=== PATIENT | female | born 1955 | race Caucasian/White ===

== ENCOUNTER 2017-06-28 19:00 | Emergency (ER) | payer OTHER ==
[~2017-06-28] VITALS: Ht 165.1 cm; Wt 61.0 kg
[2017-06-28 19:19] VITALS: BP 121/71; PULSE 74; RESP 18; TEMP 98.4; O2SAT 98
[2017-06-28] MEDS ORDERED: SODIUM CHLOR 0.9% 1000 ML INJ 1,000 ML IV ONE (19:33)
--- NOTE | 2017-06-28 19:37 | PD ---
HPI Chief Complaint: Headache Time Seen by Provider: 19:27 Travel History International Travel<30 days: No Contact w/Intl Traveler<30days: No Traveled to known affect area: No History of Present Illness HPI The patient is a 61-year-old female with no known major medical problems who complains of a gradual onset right-sided headache for the last 2 days. She also has noted left facial, left arm and some minimal left leg numbness. She denies any weakness. She denies any fever. She does have some nausea without vomiting. She has never had a headache like this before. She claims an 8/10 in intensity. The character of the pain is an aching pain. She denies any blurred vision, scotomata or other visual problems. [facility] Social History Tobacco Use: No Allergies-Medications (Allergen,Severity, Reaction): Coded Allergies: No Known Allergies (Unverified , 06/28/17) Reported Meds & Prescriptions Reported Meds & Active Scripts Active Fioricet (Ocpyqkugce-Oxrjzxidkchln-Imuxzgwy) 50-300-40 Mg Cap 1-2 Cap PO Q6H PRN Review of Systems Except as stated in HPI: all other systems reviewed are Neg Physical Exam Narrative GENERAL: The patient is alert, oriented 3 in moderate apparent distress with her right sided headache. Her vital signs are normal. SKIN: Focused skin assessment warm/dry. HEAD: Atraumatic. Normocephalic. EYES: Pupils equal and round. No scleral icterus. No injection or drainage. ENT: No nasal bleeding or discharge. Mucous membranes pink and moist. NECK: Trachea midline. No JVD. There is no meningismus and the patient flex his neck fully without any hesitation. CARDIOVASCULAR: Regular rate and rhythm. No murmur appreciated. RESPIRATORY: No accessory muscle use. Clear to auscultation. Breath sounds equal bilaterally. GASTROINTESTINAL: Abdomen soft, non-tender, nondistended. Hepatic and splenic margins not palpable. MUSCULOSKELETAL: No obvious deformities. No clubbing. No cyanosis. No edema. NEUROLOGICAL: Awake and alert. No obvious cranial nerve deficits. Motor grossly within normal limits. Normal speech. PSYCHIATRIC: Appropriate mood and affect; insight and judgment normal. Data Data Last Documented VS Vital Signs Date Time Temp Pulse Resp B/P (MAP) Pulse Ox O2 Delivery O2 Flow Rate FiO2 06/28/17 20:51 63 16 120/67 (84) 99 Room Air 4/14/18 19:19 98.4 Orders Orders Complete Blood Count With Diff (06/28/17 19:33) Comprehensive Metabolic Panel (06/28/17 19:33) Westergren Sedimentation Rate (06/28/17 19:33) Ct Brain W/O Iv Contrast(Rout) (06/28/17 19:33) Ecg Monitoring (06/28/17 19:33) Iv Access Insert/Monitor (06/28/17 19:33) Oximetry (06/28/17 19:33) Sodium Chloride 0.9% Flush (Ns Flush) (06/28/17 19:45) Prochlorperazine Inj (Compazine Inj) (06/28/17 19:45) Sodium Chlor 0.9% 1000 Ml Inj (Ns 1000 M (06/28/17 19:33) Morphine Inj (Morphine Inj) (06/28/17 20:45) Diphenhydramine Inj (Benadryl Inj) (06/28/17 20:45) Labs Laboratory Tests Test 06/28/17 20:01 White Blood Count 5.1 TH/MM3 Red Blood Count 4.74 MIL/MM3 Hemoglobin 13.6 GM/DL Hematocrit 41.2 % Mean Corpuscular Volume 86.9 FL Mean Corpuscular Hemoglobin 28.7 PG Mean Corpuscular Hemoglobin Concent 33.0 % Red Cell Distribution Width 12.7 % Platelet Count 220 TH/MM3 Mean Platelet Volume 7.5 FL Neutrophils (%) (Auto) 41.7 % Lymphocytes (%) (Auto) 50.7 % Monocytes (%) (Auto) 5.1 % Eosinophils (%) (Auto) 1.6 % Basophils (%) (Auto) 0.9 % Neutrophils # (Auto) 2.1 TH/MM3 Lymphocytes # (Auto) 2.6 TH/MM3 Monocytes # (Auto) 0.3 TH/MM3 Eosinophils # (Auto) 0.1 TH/MM3 Basophils # (Auto) 0.0 TH/MM3 CBC Comment DIFF FINAL Differential Comment Erythrocyte Sedimentation Rate 1 mm/hr Blood Urea Nitrogen 14 MG/DL Creatinine 0.70 MG/DL Random Glucose 127 MG/DL Total Protein 7.0 GM/DL Albumin 3.5 GM/DL Calcium Level 8.4 MG/DL Alkaline Phosphatase 76 U/L Aspartate Amino Transf (AST/SGOT) 17 U/L Alanine Aminotransferase (ALT/SGPT) 20 U/L Total Bilirubin 0.4 MG/DL Sodium Level 141 MEQ/L Potassium Level 3.1 MEQ/L Chloride Level 106 MEQ/L Carbon Dioxide Level 29.0 MEQ/L Anion Gap 6 MEQ/L Estimat Glomerular Filtration Rate 85 ML/MIN MDM Medical Decision Making Medical Screen Exam Complete: Yes Emergency Medical Condition: Yes Medical Record Reviewed: Yes Interpretation(s) Westergren's sedimentation rate is normal at 1. The complete metabolic profile shows a GFR of 85, calcium 8.4, potassium 3.1 but is otherwise normal. The CBC is normal. The CT brain is normal. Differential Diagnosis Migraine headache, tension headache, temporal arteritis-unlikely, subarachnoid hemorrhage-highly unlikely Narrative Course It is now 9:10 PM and the patient's headache is less than a 5/10. She feels much better. Diagnosis Primary Impression: Migraine headache Additional Instructions: As we discussed, try to go home and sleep. Sleep often helps these kind of headaches. Follow-up with your primary care physician next week. Med/Other Pt SpecificInfo: Prescription(s) given Scripts Pkzxjaudwo-Xphcybnsmfiaj-Bdpytpty (Fioricet) 50-300-40 Mg Cap 1-2 CAP PO Q6H Y for HEADACHE, #10 CAP 0 Refills Prov: Benjamin Antonio MD 06/28/17 Disposition: 01 DISCHARGE HOME Condition: Stable Benjamin Antonio MD Jun 28, 2017 19:37
[2017-06-28] MEDS ORDERED: SODIUM CHLORIDE 0.9% FLUSH 10 ML FLUSH IVF PRN (19:45)
[2017-06-28] MEDS ORDERED: PROCHLORPERAZINE INJ 10 MG/2 ML VIAL IVP ONE (19:45)
[2017-06-28 20:01] VITALS: O2SAT 99
[2017-06-28 20:12] LABS: AUTOMATED NEUTROPHIL # 2.1 TH/MM3 (1.8-7.7); BASOPHIL % 0.9 % (0.0-2.0); EOSINOPHIL # 0.1 TH/MM3 (0-0.4); EOSINOPHIL % 1.6 % (0.0-4.0); HEMATOCRIT 41.2 % (35.0-46.0); HEMOGLOBIN 13.6 GM/DL (11.6-15.3); LYMPH % 50.7 % (9.0-44.0); LYMPHOCYTE # 2.6 TH/MM3 (1.0-4.8); MEAN CELL VOLUME 86.9 FL (80.0-100.0); MEAN CORPUSCULAR HEMOGLOBIN 28.7 PG (27.0-34.0); MEAN PLATELET VOLUME 7.5 FL (7.0-11.0); MONO % 5.1 % (0.0-8.0); MONOCYTE # 0.3 TH/MM3 (0-0.9); NEUT % 41.7 % (16.0-70.0); PLATELET COUNT 220 TH/MM3 (150-450); RED BLOOD COUNT 4.74 MIL/MM3 (4.00-5.30); RED CELL DISTRIBUTION WIDTH 12.7 % (11.6-17.2); WHITE BLOOD COUNT 5.1 TH/MM3 (4.0-11.0)
[2017-06-28 20:18] LABS: CHLORIDE 106 MEQ/L (98-107); SODIUM (NA) 141 MEQ/L (136-145)
[2017-06-28 20:21] LABS: CALCIUM 8.4 MG/DL (8.5-10.1)
[2017-06-28 20:22] LABS: ALBUMIN 3.5 GM/DL (3.4-5.0); BLOOD UREA NITROGEN 14 MG/DL (7-18); GLUCOSE,RANDOM 127 MG/DL (74-106)
[2017-06-28 20:25] LABS: ALT (GPT) 20 U/L (10-53); AST (GOT) 17 U/L (15-37); GLOMERULAR FILTRATION RATE 85 ML/MIN (>89)
[2017-06-28 20:27] LABS: TOTAL BILIRUBIN ADULT 0.4 MG/DL (0.2-1.0)
[2017-06-28 20:28] LABS: ALKALINE PHOSPHATASE 76 U/L (45-117)
--- NOTE | 2017-06-28 20:28 | RADRPT ---
EXAM DATE/TIME: 06/28/2017 20:08 [place] COMPARISON: No previous studies available for comparison. INDICATIONS : Cephalgia. RADIATION DOSE: 46.81 CTDIvol (mGy) MEDICAL HISTORY : None SURGICAL HISTORY : None. ENCOUNTER: Initial ACUITY: 1 day PAIN SCALE: 5/10 LOCATION: cranial TECHNIQUE: Multiple contiguous axial images were obtained of the head. Using automated exposure control and adj ustment of the mA and/or kV according to patient size, radiation dose was kept as low as reasonably a chievable to obtain optimal diagnostic quality images. DICOM format image data is available electro nically for review and comparison. FINDINGS: CEREBRUM: The ventricles are normal for age. No evidence of midline shift, mass lesion, hemorrhage or acute in farction. No extra-axial fluid collections are seen. POSTERIOR FOSSA: The cerebellum and brainstem are intact. The 4th ventricle is midline. The cerebellopontine angle i s unremarkable. EXTRACRANIAL: The visualized portion of the orbits is intact. SKULL: The calvaria is intact. No evidence of skull fracture. CONCLUSION: Negative noncontrast head CT. Abdulaziz Ochoa MD on June 28, 2017 at 20:26 Board Certified Radiologist. This report was verified electronically.
[2017-06-28] MEDS ORDERED: MORPHINE SULFATE 8 MG/ML INJ IV PUSH ONE (20:45)
[2017-06-28] MEDS ORDERED: diphenhydrAMINE HCL 50 MG/ML VIAL IVP ONE (20:45)
[2017-06-28 20:51] VITALS: BP 120/67; PULSE 63; RESP 16; O2SAT 99
[2017-06-28] MEDS ORDERED: BUTA1CAP PO (21:13)
[2017-06-28 21:23] VITALS: BP 99/64
== END 2017-06-28 21:38 | disposition home or self-care (01) ==
LOC: PHED 19:00
DX: G43.909 Migraine, unspecified, not intractable, without status migrainosus (principal)
CPT/HCPCS: 70450; 80053; 85025; 85652; 96361; 96374; 96375; 99284; J0780; J1200; J2270; J7030

== ENCOUNTER 2017-12-09 12:19 | Inpatient (IN) ==
[2017-12-09] MEDS ORDERED: Acetaminophen 325 MG Tablet PO ONE (12:40)
[2017-12-09] MEDS ORDERED: Sod Chloride 0.9% Inj 1,000 ML IV.SIG SCH (12:45)
--- NOTE | 2017-12-09 13:01 | ED ---
HPI General Chief Complaint: Chest Pain Stated Complaint: CHEST PAIN Time Seen by Provider: 12/09/17 12:38 Source: patient Mode of arrival: ambulatory Limitations: no limitations History of Present Illness HPI narrative: Patient is a 62-year-old female who presents the emergency room with complaints of chest pain. Patient reports that chest pain began around 10 AM that she was just walking around and began to have a "pressure" to her chest. Patient reports that nothing makes pain better or worse, she is experiencing shortness of breath or chest pain. Patient denies any diaphoresis , denies any nausea or vomiting. Patient denies any history of CAD, denies any history of hypertension or hyperlipidemia in the past. Patient reports that in addition, she was seen in the hospital on November 13, 2017, reports that she was diagnosed with a UTI and was given a prescription for this. Reports that she just filled the prescription yesterday and started taking the medication yesterday (macrobid). Reports that she was told to follow -up with a technical marketing engineer as she was diagnosed with a pelvic syndrome, reports that she has not yet follow-up. Reports that she still continues to have flank pain and has not been feeling well Related Data Home Medications Medication Instructions Recorded Confirmed No Known Home Medications 12/09/17 12/09/17 Allergies Allergy/AdvReac Type Severity Reaction Status Date / Time No Known Allergies Allergy Verified 11/12/17 19:04 Review of Systems ROS: all other systems reviewed are negative PMFSH History History Provided By: Patient Social History Social History Substance History: No History of Abuse Smoking Status: Light tobacco smoker Tobacco Type: Cigarettes and E-Cigarettes How Often Do You Have a Drink Containing Alcohol: Never Exam Narrative Exam Narrative: GENERAL: mild distress SKIN: Focused skin assessment warm/dry. HEAD: Atraumatic. Normocephalic. EYES: Pupils equal and round. No scleral icterus. No injection or drainage. ENT: No nasal bleeding or discharge. Mucous membranes pink and moist. NECK: Trachea midline. No JVD. CARDIOVASCULAR: tachycardic. No murmur appreciated. RESPIRATORY: No accessory muscle use. Clear to auscultation. Breath sounds equal bilaterally. GASTROINTESTINAL: Abdomen soft, non-tender, nondistended. Hepatic and splenic margins not palpable. MUSCULOSKELETAL: No obvious deformities. No clubbing. No cyanosis. No edema. NEUROLOGICAL: Awake and alert. No obvious cranial nerve deficits. Motor grossly within normal limits. Normal speech. PSYCHIATRIC: Appropriate mood and affect; insight and judgment normal. Course Initial Documented Vital Signs Pulse Rate 98 H 12/09/17 12:38 Respiratory Rate 14 12/09/17 12:38 Blood Pressure 119/60 12/09/17 12:38 Pulse Oximetry 94 L 12/09/17 12:38 Last Documented Vital Signs Temperature 99.9 F H 12/09/17 14:11 Pulse Rate 90 12/09/17 16:02 Respiratory Rate 16 12/09/17 16:02 Blood Pressure 100/56 L 12/09/17 16:02 Pulse Oximetry 93 L 12/09/17 16:02 Critical Care Time Critical Care Time: Yes Total Critical Care Time: 30 Attestation: Aggregate critical care time was 30 minutes. Time to perform other separately billable procedures was not included in the critical care time. My time did not include minutes spent treating any other patients simultaneously or on activities that did not directly contribute to the patient's treatment. The services I provided to this patient were to treat and/or prevent clinically significant deterioration that could result in: , decompensation, deterioration I provided critical care services requiring my management, as noted below: Chart data review, documentation time, medication orders and management, vital sign assessments/reviewing monitor data, ordering and reviewing lab tests, ordering and interpreting/reviewing x-rays and diagnostic studies, care of the patient and discussion of the patient with the admitting physicians. Medical Decision Making MDM Narrative Medical decision making narrative: 50.7 white blood cell count.During the course of the patients emergency department visit, the patients history, examination, and differential diagnosis were reviewed with the patient. The patient was placed on a motion picture camera operator with oximetry and frequent blood pressure monitoring. The patient had an IV access obtained and blood work sent for analysis. The patient was initially provided asa as well as SL nitro The patients laboratory studies were reviewed and remarkable for: wbc 15.7, hgb 14.5, hct 41.5, platelets 187 sodium 137, potassium 3.8, chloride 105, BUN 12, creatinine 0.83, carbon dioxide 24, glucose 111 Lactic acid 1.4 trop: less than 0.02 UA: Positive for ketones, small leuk esterase, X-ray of the chest with no acute intrathoracic disease. Patient with SIRS criteria with tachycardia and 15.7 wbc, she has been pancultured, will administer rocephin for presumed UTI. She will need to be admitted to the hospital Patient is hypoxic with a resting pulse ox of 94%, she is tachycardic with a heart rate of 103, given her chest pain or shortness of breath, CTA ordered to rule out PE. CTA with no evidence for PE, there are chronic lung changes with hyperinflation , central bronchial wall thicking and diffuse interstitial prominence,. Medical Screen Exam Complete: Yes Emergency Medical Condition: Yes Differential Diagnosis Differential Diagnosis: ACS, arrhythmia, sepsis, bacteremia, UTI, pyelonephritis , electrolyte abnormality, PE Medical Records Medical records reviewed: Yes I reviewed the patient's medical records. Lab Data Result diagrams: 12/09/17 13:06 12/09/17 13:06 Lab Results 12/09/17 12/09/17 12/09/17 Range/Units 13:06 13:06 13:06 CBC w Diff Auto diff final WBC 15.7 H (4.0-11.0) th/mm3 RBC 4.76 (4.00-5.30) mil/mm3 Hgb 14.5 (11.6-15.3) gm/dL Hct 41.5 (35.0-46.0) % MCV 87.0 (80.0-100.0) fL MCH 30.5 (27.0-34.0) pg MCHC 35.1 (32.0-36.0) % RDW 12.2 (11.6-17.2) % Plt Count 187 (150-450) th/mm3 MPV 8.0 (7.0-11.0) fL Neut % (Auto) 94.0 H (16.0-70.0) % Lymph % (Auto) 3.0 L (9.0-44.0) % [place] % (Auto) 1.5 (0.0-8.0) % Eos % (Auto) 0.2 (0.0-4.0) % Baso % (Auto) 1.3 (0.0-2.0) % Neut # (Auto) 14.8 H (1.8-7.7) th/mm3 Lymph # (Auto) 0.5 L (1.0-4.8) th/mm3 [place] # (Auto) 0.2 (0.0-0.9) th/mm3 Eos # (Auto) 0.0 (0.0-0.4) th/mm3 Baso # (Auto) 0.2 (0.0-0.2) th/mm3 WBC Differential . Differential Comment . PT (9.8-11.6) sec INR Ratio APTT (24.3-30.1) sec D-Dimer Quant (PE/DVT) 0.34 (0.00-0.50) mg/L FEU Sodium 137 (136-145) meq/L Potassium 3.8 (3.5-5.1) meq/L Chloride 105 (98-107) meq/L Carbon Dioxide 24.0 (21.0-32.0) meq/L Anion Gap 8 (5-15) meq/L BUN 12 (7-18) mg/dL Creatinine 0.83 (0.50-1.00) mg/dL Estimated GFR 70 L (>89) mL/min Random Glucose 111 H (74-106) mg/dL Lactic Acid (0.4-2.0) mmol/L Calcium 8.3 L (8.5-10.1) mg/dL Total Bilirubin 1.4 H (0.2-1.0) mg/dL AST 46 H (15-37) U/L ALT 42 (10-53) U/L Alkaline Phosphatase 66 (45-117) U/L Total Creatine Kinase (26-192) U/L CK-MB (CK-2) (0.5-3.6) ng/mL Troponin I Less than 0.02 L (0.02-0.05) ng/mL B-Natriuretic Peptide (0-100) pg/mL Total Protein 7.5 (6.4-8.2) g/dL Albumin 3.5 (3.4-5.0) g/dL Lipase 92 (73-393) U/L Urine Color (Yellw/Straw) Urine Clarity (Clear) Urine pH (5.0-8.5) Ur Specific [place] (1.002-1.035) Urine Protein (Neg-Trace) mg/dL Urine Glucose (UA) (Negative) mg/dL Urine Ketones (Negative) mg/dL Urine Occult Blood (Negative) Urine Nitrate (Negative) Urine Bilirubin (Negative) Urine Urobilinogen (Less than 2) mg/dL Ur Leukocyte Esterase (Negative) Urine RBC (0-3) /hpf Urine WBC (0-5) /hpf Ur Squamous Epith Cells (0-5) /hpf Urine Bacteria (None) /hpf Micro UA Comment Ur Microscopic Review Urine Culture Comments 12/09/17 12/09/17 12/09/17 Range/Units 13:06 13:06 13:06 CBC w Diff WBC (4.0-11.0) th/mm3 RBC (4.00-5.30) mil/mm3 Hgb (11.6-15.3) gm/dL Hct (35.0-46.0) % MCV (80.0-100.0) fL MCH (27.0-34.0) pg MCHC (32.0-36.0) % RDW (11.6-17.2) % Plt Count (150-450) th/mm3 MPV (7.0-11.0) fL Neut % (Auto) (16.0-70.0) % Lymph % (Auto) (9.0-44.0) % [place] % (Auto) (0.0-8.0) % Eos % (Auto) (0.0-4.0) % Baso % (Auto) (0.0-2.0) % Neut # (Auto) (1.8-7.7) th/mm3 Lymph # (Auto) (1.0-4.8) th/mm3 [place] # (Auto) (0.0-0.9) th/mm3 Eos # (Auto) (0.0-0.4) th/mm3 Baso # (Auto) (0.0-0.2) th/mm3 WBC Differential Differential Comment PT 10.9 (9.8-11.6) sec INR 1.1 Ratio APTT 24.5 (24.3-30.1) sec D-Dimer Quant (PE/DVT) (0.00-0.50) mg/L FEU Sodium (136-145) meq/L Potassium (3.5-5.1) meq/L Chloride (98-107) meq/L Carbon Dioxide (21.0-32.0) meq/L Anion Gap (5-15) meq/L BUN (7-18) mg/dL Creatinine (0.50-1.00) mg/dL Estimated GFR (>89) mL/min Random Glucose (74-106) mg/dL Lactic Acid (0.4-2.0) mmol/L Calcium (8.5-10.1) mg/dL Total Bilirubin (0.2-1.0) mg/dL AST (15-37) U/L ALT (10-53) U/L Alkaline Phosphatase (45-117) U/L Total Creatine Kinase 136 (26-192) U/L CK-MB (CK-2) Less than 1.0 (0.5-3.6) ng/mL Troponin I (0.02-0.05) ng/mL B-Natriuretic Peptide 104 H (0-100) pg/mL Total Protein (6.4-8.2) g/dL Albumin (3.4-5.0) g/dL Lipase (73-393) U/L Urine Color (Yellw/Straw) Urine Clarity (Clear) Urine pH (5.0-8.5) Ur Specific [place] (1.002-1.035) Urine Protein (Neg-Trace) mg/dL Urine Glucose (UA) (Negative) mg/dL Urine Ketones (Negative) mg/dL Urine Occult Blood (Negative) Urine Nitrate (Negative) Urine Bilirubin (Negative) Urine Urobilinogen (Less than 2) mg/dL Ur Leukocyte Esterase (Negative) Urine RBC (0-3) /hpf Urine WBC (0-5) /hpf Ur Squamous Epith Cells (0-5) /hpf Urine Bacteria (None) /hpf Micro UA Comment Ur Microscopic Review Urine Culture Comments 12/09/17 12/09/17 12/09/17 Range/Units 13:40 14:16 15:49 CBC w Diff WBC (4.0-11.0) th/mm3 RBC (4.00-5.30) mil/mm3 Hgb (11.6-15.3) gm/dL Hct (35.0-46.0) % MCV (80.0-100.0) fL MCH (27.0-34.0) pg MCHC (32.0-36.0) % RDW (11.6-17.2) % Plt Count (150-450) th/mm3 MPV (7.0-11.0) fL Neut % (Auto) (16.0-70.0) % Lymph % (Auto) (9.0-44.0) % [place] % (Auto) (0.0-8.0) % Eos % (Auto) (0.0-4.0) % Baso % (Auto) (0.0-2.0) % Neut # (Auto) (1.8-7.7) th/mm3 Lymph # (Auto) (1.0-4.8) th/mm3 [place] # (Auto) (0.0-0.9) th/mm3 Eos # (Auto) (0.0-0.4) th/mm3 Baso # (Auto) (0.0-0.2) th/mm3 WBC Differential Differential Comment PT (9.8-11.6) sec INR Ratio APTT (24.3-30.1) sec D-Dimer Quant (PE/DVT) (0.00-0.50) mg/L FEU Sodium (136-145) meq/L Potassium (3.5-5.1) meq/L Chloride (98-107) meq/L Carbon Dioxide (21.0-32.0) meq/L Anion Gap (5-15) meq/L BUN (7-18) mg/dL Creatinine (0.50-1.00) mg/dL Estimated GFR (>89) mL/min Random Glucose (74-106) mg/dL Lactic Acid 1.4 (0.4-2.0) mmol/L Calcium (8.5-10.1) mg/dL Total Bilirubin (0.2-1.0) mg/dL AST (15-37) U/L ALT (10-53) U/L Alkaline Phosphatase (45-117) U/L Total Creatine Kinase 87 (26-192) U/L CK-MB (CK-2) (0.5-3.6) ng/mL Troponin I Less than 0.02 L (0.02-0.05) ng/mL B-Natriuretic Peptide (0-100) pg/mL Total Protein (6.4-8.2) g/dL Albumin (3.4-5.0) g/dL Lipase (73-393) U/L Urine Color Yellow (Yellw/Straw) Urine Clarity Clear (Clear) Urine pH 6.0 (5.0-8.5) Ur Specific [place] 1.015 (1.002-1.035) Urine Protein Trace (Neg-Trace) mg/dL Urine Glucose (UA) Negative (Negative) mg/dL Urine Ketones 15 H (Negative) mg/dL Urine Occult Blood Trace (Negative) Urine Nitrate Negative (Negative) Urine Bilirubin Negative (Negative) Urine Urobilinogen 0.2 (Less than 2) mg/dL Ur Leukocyte Esterase Small H (Negative) Urine RBC 0-3 (0-3) /hpf Urine WBC 0-5 (0-5) /hpf Ur Squamous Epith Cells 0-5 (0-5) /hpf Urine Bacteria Few H (None) /hpf Micro UA Comment Culture not ind Ur Microscopic Review Microscopic reviewed Urine Culture Comments Culture not ind Imaging Data Radiologist's impression: Chest X-Ray 12/09/17 12:38 CONCLUSION: No acute intrathoracic disease. Chest CTA 12/09/17 15:22 CONCLUSION: 1. No evidence of acute pulmonary embolism. 2. Chronic lung changes with hyperinflation, central bronchial wall thickening and diffuse interstitial prominence. 3. Subsegmental airspace disease right lower lobe. ECG Data EKG Prior to Arrival: No Attestation: I personally reviewed and interpreted this ECG as follows: Interpretation: EKG at 1224: Sinus tach at 106bpm, qt/qtc: 325/387, Discharge Plan Discharge Disposition Patient Disposition: 30 Still Patient Discharge Condition Condition: Stable Discharge Details Diagnosis: SIRS (systemic inflammatory response syndrome), Chest pain Physicians Team ED Provider: Mindy Diaz Primary Care Provider: Kika Hensley Rxs /Orders / Referrals /Forms Prescriptions: No Action No Known Home Medications RF: 0 Discharge Instructions Patient Printed Instructions: Chest Pain (ED) Status ED Status: With Doctor
--- NOTE | 2017-12-09 13:06 | XR ---
EXAM DATE: 12/09/2017 12:38 PM EDT AGE/SEX: 62 years / Female INDICATIONS: Chest pain. CLINICAL DATA: This is the patient's initial encounter. Patient reports that signs and symptoms have been present for 2 days and indicates a pain score of 4/10. MEDICAL/SURGICAL HISTORY: None. None. COMPARISON: No prior exams available for comparison. FINDINGS: A single AP view of the chest demonstrates the lungs to be symmetrically aerated without evidence of mass, infiltrate or effusion. The cardiomediastinal contours are unremarkable. Osseous structures a re intact. CONCLUSION: No acute intrathoracic disease. Electronically signed by: Hudson Craig MD 12/09/2017 1:05 PM EDT
[2017-12-09 13:18] LABS: Baso # (Auto) 0.2 th/mm3 (0.0-0.2); Baso % (Auto) 1.3 % (0.0-2.0); Eos % (Auto) 0.2 % (0.0-4.0); Hematocrit 41.5 % (35.0-46.0); Hemoglobin 14.5 gm/dL (11.6-15.3); Lymph # (Auto) 0.5 th/mm3 (1.0-4.8); Mean Corpuscular HGB Conc 35.1 % (32.0-36.0); Mean Corpuscular Hemoglobin 30.5 pg (27.0-34.0); Mono # (Auto) 0.2 th/mm3 (0.0-0.9); Mono % (Auto) 1.5 % (0.0-8.0); Neut # (Auto) 14.8 th/mm3 (1.8-7.7); Platelet Count 187 th/mm3 (150-450); Red Blood Count 4.76 mil/mm3 (4.00-5.30); Red Cell Distribution Width 12.2 % (11.6-17.2); White Blood Count 15.7 th/mm3 (4.0-11.0)
[2017-12-09 13:28] LABS: Chloride 105 meq/L (98-107); Potassium 3.8 meq/L (3.5-5.1); Sodium 137 meq/L (136-145)
[2017-12-09 13:32] LABS: Calcium 8.3 mg/dL (8.5-10.1)
[2017-12-09 13:33] LABS: Albumin 3.5 g/dL (3.4-5.0); Anion Gap 8 meq/L (5-15); Blood Urea Nitrogen 12 mg/dL (7-18); Glucose,Random 111 mg/dL (74-106); Lipase 92 U/L (73-393)
[2017-12-09 13:34] LABS: Activated Partial Thrombo Time 24.5 sec (24.3-30.1); INR 1.1 Ratio; Prothrombin Time 10.9 sec (9.8-11.6)
[2017-12-09 13:36] LABS: Alanine Aminotransferase 42 U/L (10-53); Aspartate Aminotransferase 46 U/L (15-37); Glomerular Filtration Rate 70 mL/min (>89)
[2017-12-09 13:37] LABS: Total Protein 7.5 g/dL (6.4-8.2)
[2017-12-09 13:38] LABS: Alkaline Phosphatase 66 U/L (45-117)
[2017-12-09 13:47] LABS: Creatine Kinase 136 U/L (26-192)
[2017-12-09 15:06] LABS: Bilirubin,Urine Negative (Negative); Clarity,Urine Clear (Clear); Color,Urine Yellow (Yellw/Straw); Glucose,Urine (UA) Negative (Negative); Leukocyte Esterase,Urine Small (Negative); Nitrite,Urine Negative (Negative); Specific Gravity,Urine 1.015 (1.002-1.035); Urobilinogen,Urine 0.2 mg/dL (Less than 2)
[2017-12-09 15:20] LABS: RBC,Urine 0-3 /hpf (0-3); Squamous Epithelial Cell,Urine 0-5 /hpf (0-5); WBC,Urine 0-5 /hpf (0-5)
[2017-12-09 15:21] LABS: Bacteria,Urine Few /hpf
[2017-12-09 16:17] LABS: Creatine Kinase 87 U/L (26-192)
--- NOTE | 2017-12-09 17:43 | CT ---
EXAM DATE: 12/09/2017 5:10 PM EDT AGE/SEX: 62 years / Female INDICATIONS: Chest pain. Tachycardia. CLINICAL DATA: This is the patient's initial encounter. Patient reports that signs and symptoms have been present for 1 day and indicates a pain score of 3/10. MEDICAL/SURGICAL HISTORY: None. None. RADIATION DOSE: 6.54 CTDI (mGy) COMPARISON: No prior exams available for comparison. TECHNIQUE: Volumetric scanning was performed using a multi-row detector CT scanner during bolus infu ravinder of 65 ml Omnipaque 350 (iohexol) nonionic water-soluble contrast as a single exam dose. The katie a was post processed with a variety of visualization algorithms including full volume maximum intensi ty projection and sliding thin slab reformation. Using automated exposure control and adjustment of t he mA and/or kV according to patient size, radiation dose was kept as low as reasonably achievable to obtain optimal diagnostic quality images. DICOM format image data is available electronically for r eview and comparison. FINDINGS: Pulmonary Arteries: No filling defects are seen in the pulmonary arteries out to the subsegmental ve ssels. The left and right pulmonary arteries are normal in diameter. Lung: Subsegmental airspace disease is identified posteriorly within the right lower lobe. Lungs are hyperinflated with diffuse interstitial prominence and central bronchial wall thickening. Effusion: None. Mediastinum: No evidence of mediastinal or hilar adenopathy. Other: The axilla is unremarkable. CONCLUSION: 1. No evidence of acute pulmonary embolism. 2. Chronic lung changes with hyperinflation, central bronchial wall thickening and diffuse interstit ial prominence. 3. Subsegmental airspace disease right lower lobe. Electronically signed by: Leif Quinones MD 12/09/2017 5:41 PM EDT
[2017-12-09] MEDS ORDERED: Morphine Inj 4 MG/ML Vial IV.PUSH PRN (18:10)
[2017-12-09] MEDS ORDERED: Acetaminophen 500 MG Tablet PO PRN (18:10)
[2017-12-09] MEDS ORDERED: Bisacodyl 10 MG Supp RECTAL PRN (18:12)
[2017-12-09 19:53] LABS: Creatine Kinase 91 U/L (26-192)
[2017-12-09] MEDS: Sod Chloride 0.9% Inj 1,000 ML IV.CONT SCH (19:56)
[2017-12-09] MEDS ORDERED: Azithromycin Inj 500 MG in Sodium Chlor 0.9% Inj 250 ML IV.SIG SCH (20:00)
[2017-12-09 22:15] LABS: Creatine Kinase 90 U/L (26-192)
--- NOTE | 2017-12-09 22:21 | ECG ---
Date Performed: 12/09/2017 Time Performed: 20:50:50 PTAGE: 62 years EKG: Sinus rhythm INCOMPLETE RIGHT BUNDLE BRANCH BLOCK BORDERLINE ECG PREVIOUS TRACING : 12/09/2017 12.24 Since the previous tracing, no significant change noted DOCTOR: Noel Quarles Interpretating Date/Time 12/09/2017 22:19:56
[2017-12-09] MEDS: Senna/Docusate Sodium 8.6/50 MG Tablet PO SCH (22:31)
--- NOTE | 2017-12-09 22:52 | ECG ---
Date Performed: 12/09/2017 Time Performed: 12:24:32 PTAGE: 62 years EKG: SINUS TACHYCARDIA POSSIBLE LEFT ATRIAL ENLARGEMENT POSSIBLE RIGHT VENTRICULAR CONDUCTION DE LAY NONSPECIFIC T-WAVE ABNORMALITY ABNORMAL RHYTHM ECG NO PREVIOUS TRACING DOCTOR: Noel Quarles Interpretating Date/Time 12/09/2017 22:51:17
[2017-12-10 06:44] LABS: Baso % (Auto) 0.2 % (0.0-2.0); Eos # (Auto) 0.3 th/mm3 (0.0-0.4); Eos % (Auto) 2.3 % (0.0-4.0); Hematocrit 34.5 % (35.0-46.0); Lymph # (Auto) 0.8 th/mm3 (1.0-4.8); Lymph % (Auto) 6.3 % (9.0-44.0); Mean Corpuscular HGB Conc 35.1 % (32.0-36.0); Mean Corpuscular Hemoglobin 30.3 pg (27.0-34.0); Mean Corpuscular Volume 86.5 fL (80.0-100.0); Mean Platelet Volume 8.5 fL (7.0-11.0); Mono # (Auto) 0.4 th/mm3 (0.0-0.9); Mono % (Auto) 3.3 % (0.0-8.0); Neut # (Auto) 11.9 th/mm3 (1.8-7.7); Neut % (Auto) 87.9 % (16.0-70.0); Platelet Count 153 th/mm3 (150-450); Red Blood Count 3.99 mil/mm3 (4.00-5.30); Red Cell Distribution Width 12.9 % (11.6-17.2); White Blood Count 13.4 th/mm3 (4.0-11.0)
[2017-12-10 06:46] LABS: Hemoglobin 12.1 gm/dL (11.6-15.3)
[2017-12-10] MEDS: Sod Chloride 0.9% Inj 1,000 ML IV.CONT SCH ×2 (08:11→16:22)
[2017-12-10 08:13] VITALS: RESP 20
[2017-12-10] MEDS: Senna/Docusate Sodium 8.6/50 MG Tablet PO SCH (09:58)
--- NOTE | 2017-12-10 11:10 | P.HP ---
History of Present Illness Primary Care Physician: Kika Hensley Chief Complaint: Abdominal pain, chest pain, fever and chills History of Present Illness: 62-year-old female with no chronic medical illnesses who presented to the hospital because of chest pain, abdominal pain, fever, chills. Patient states that she was evaluated approximately 1 month ago in the emergency department and was diagnosed with urinary tract infection and pelvic congestion syndrome. Patient was notified to obtain outpatient [employer] for further evaluation, patient was given prescription for antibiotics. However patient did not do any outpatient evaluations due to she has been taking care of her has been in the hospital. Patient did just parts picker the antibiotics a few days ago and started taking them, however she is still experiencing chest discomfort in the middle part of her chest which he describes as a tightness 7/10 on a pain scale which have been persistent for 2 days without any worsening or crescendo type pain. There is no radiation to the neck, back, shoulder, arm. Patient denied any nausea, vomiting, shortness of breath, dyspnea. Patient does go to Dr. Lyn Ponce on a regular basis for evaluation and recently underwent exercise stress test in July 2017. I contacted their office and they indicated that his stress test was negative. Patient did have workup done emergency department which was unremarkable. CTA of the chest did indicate some diffuse interstitial lung prominences. Some subsegmental airspace disease in the right lower lobe. Patient did have findings to include leukocytosis, tachycardia, airspace disease, urinary tract infection with recently starting antibiotics. Signs and findings suggestive of sepsis criteria. Patient was admitted to the hospital for further evaluation and management. Inpatient Certification: I certify that the inpatient services were ordered in accordance with Medicare regulations governing the order. This includes certification that hospital inpatient services are reasonable and necessary and in the case of services not specified as inpatient-only under 42 CFR 419.22(n), that they are appropriately provided as inpatient services in accordance to with the 2-midnight benchmark under 43 CFR 412.3(e) Estimated Total Length of Stay (Days): 2 Plans for Post Hospital Care: Not yet determined Review of Systems All other systems reviewed negative except as stated in HPI Constitutional: Reports chills, Reports fever(s) Cardiovascular: Reports chest pain Gastrointestinal: Reports abdominal pain PMFSH - History History Provided By: Patient - Medical History Medical History: Medical History (Last Updated 12/10/17 @ 10:19 by KANIKA Khoury) No significant medical problems - Surgical History Surgical History: Surgical History (Last Updated 12/10/17 @ 10:20 by KANIKA Khoury) History of appendectomy - Family History Family History: Family History (Last Updated 12/10/17 @ 10:21 by KANIKA Khoury) Father History of cardiac arrhythmia Mother History of diabetes mellitus - Tobacco History Second Hand Smoke Exposure: Yes Tobacco Use In Past 30 Days: Yes Smoking Status: Current every day smoker Tobacco Type: Cigarettes - Alcohol History How Often Do You Have a Drink Containing Alcohol: Never - Substance Use History Substance History: No History of Abuse - Travel History Recent Travel in the [place] Within the Last 8 Weeks: No Recent Travel Out of the Country Within the Last 8 Weeks: No - Immunization History Tetanus Immunization: Unsure Hx Influenza Vaccine This Season: No Medications and Allergies Active Medications: Active Medications Acetaminophen (Tylenol) 500 mg PO Q4H PRN PRN Reason: HEADACHE Al Hydroxide/Mg Hydroxide (Milk Of Magnesia Liq) 30 ml PO Q12H PRN PRN Reason: Mild Constipation Bisacodyl (Dulcolax Supp) 10 mg RECTAL DAILY PRN PRN Reason: SEVERE CONSITIPATION Sodium Chloride (Ns Inj) 1,000 mls @ 0 mls/hr IV.SIG BOLUS [facility] Last Infusion: 12/09/17 14:13 Dose: Infused Sodium Chloride (Ns Inj) 1,000 mls @ 100 mls/hr IV.CONT .Q10H [facility] Last Admin: 12/10/17 08:11 Dose: 100 mls/hr Azithromycin 500 mg/ Sodium (Chloride) 250 mls @ 250 mls/hr IV.SIG Q24H [facility] Last Infusion: 12/09/17 21:08 Dose: Infused Ceftriaxone Sodium 1,000 mg/ (Sodium Chloride) 100 mls @ 200 mls/hr IV.SIG Q24H [facility] Lactulose (Lactulose Liq) 30 ml PO DAILY PRN PRN Reason: SEVERE CONSITIPATION Morphine Sulfate (Morphine Inj) 2 mg IV.PUSH Q4H PRN PRN Reason: PAIN SCALE 8 TO 10 Ondansetron HCl (Zofran Inj) 4 mg IV.PUSH Q6H PRN PRN Reason: NAUSEA Senna/Docusate Sodium (Cassia-Colace) 1 tab PO BID [facility] Last Admin: 12/10/17 09:58 Dose: Not Given Sennosides (Senokot) 17.2 mg PO Q12H PRN PRN Reason: Moderate Constipation Sodium Chloride (Ns Flush) 2 ml IV.FLUSH BID [facility] Last Admin: 12/10/17 09:58 Dose: Not Given Sodium Chloride (Ns Flush) 2 ml IV.FLUSH PRN PRN PRN Reason: FLUSH AFTER USING IV ACCESS Allergies Allergy/AdvReac Type Severity Reaction Status Date / Time No Known Allergies Allergy Verified 11/12/17 19:04 Home Medications Medication Instructions Recorded Confirmed Type No Known Home Medications 12/09/17 12/09/17 History Exam Vital signs: Vital Signs 12/09/17 12:35 12/09/17 12:38 12/09/17 13:25 Temperature 101.5 F H Pulse Rate 102 H 98 H 103 H Respiratory Rate 16 14 15 Blood Pressure 115/62 119/60 115/55 L Pulse Oximetry 94 L 93 L 94 L 12/09/17 14:11 12/09/17 16:02 12/09/17 19:22 Temperature 99.9 F H Pulse Rate 90 98 H Respiratory Rate 16 16 Blood Pressure 100/56 L 112/66 Pulse Oximetry 93 L 94 L 12/09/17 21:00 12/10/17 00:00 12/10/17 04:00 Temperature 97.0 F L 98.9 F 99.4 F Pulse Rate 97 H 92 H 92 H Respiratory Rate 16 16 16 Blood Pressure 106/63 91/51 L 111/65 Pulse Oximetry 95 95 97 12/10/17 08:00 12/10/17 08:21 Temperature 99.4 F Pulse Rate 82 Respiratory Rate 20 Blood Pressure 91/53 L Pulse Oximetry 93 L 95 Intake & Output 12/09/17 12/10/17 12/10/17 18:59 06:59 18:59 Intake Total 1100 / 1100 450 / 450 1000 / 1000 Balance 1100 / 1100 450 / 450 1000 / 1000 Weight 63.7 kg 70.9 kg Intake: IV 1100 / 1100 250 / 250 1000 / 1000 NS Inj 1,000 ML @ 100 mls/hr IV 1000 / 1000 .CONT .Q10H [facility] Rx#:[id number] Azithromycin Inj 500 MG In NS 250 / 250 Inj 250 ML @ 250 mls/hr IV.SIG Q24H [facility] Rx#:[id number] NS Inj 1,000 ML @ Wide Open IV. 1000 / 1000 SIG BOLUS [facility] Rx#:[id number] Rocephin Inj 1,000 MG In NS Inj 100 / 100 100 ML @ 200 mls/hr IV.SIG ONCE ONE Rx#:[id number] Oral 200 / 200 Other: # Voids 3 Weight On Admission 32.16 kg Narrative: GENERAL: Well-developed, well-nourished, in no acute distress. alert and orientated HEENT: Head is normocephalic without any lesions or masses noted. Facial features are symmetric. Eyes: Pupils equal round reactive to light. Extraocular muscles are intact. Conjunctivae were clear. Oropharyngeal: Pharynx without any erythema edema. Tongue is midline without deviation. Buccal mucosa is moist without any masses or lesions NECK: Supple without any masses. Trachea midline no deviation. No JVD, no bruits are appreciated CARDIAC: Regular rhythm, regular rate. S1/S2 are heard. No murmurs gallops or rubs. LUNGS: Clear to auscultation bilaterally. No wheeze, rhonchi or rales. No use of accessory muscles on inspiration or expiration. ABDOMEN: Soft, nontender. Nondistended. Bowel sounds heard in all 4 quadrants. No organomegaly or masses. Negative rebound, negative guarding EXTREMITIES: No edema, pulses are equal bilaterally. No cyanosis or clubbing NEUROLOGY: Mood and affect appear appropriate. Cranial nerves II through XII grossly intact. Muscle strength 5/5 in upper and lower extremities bilaterally. Deep tendon reflexes are 2+ in upper and lower extremities bilaterally. Results - Labs CBC & Chem 7: 12/10/17 05:35 12/09/17 13:06 Labs: Laboratory Results - last 24 hr 12/09/17 12/09/17 12/09/17 13:06 13:06 13:06 CBC w Diff Auto diff final WBC 15.7 H RBC 4.76 Hgb 14.5 Hct 41.5 MCV 87.0 MCH 30.5 MCHC 35.1 RDW 12.2 Plt Count 187 MPV 8.0 Neut % (Auto) 94.0 H Lymph % (Auto) 3.0 L [place] % (Auto) 1.5 Eos % (Auto) 0.2 Baso % (Auto) 1.3 Neut # (Auto) 14.8 H Lymph # (Auto) 0.5 L [place] # (Auto) 0.2 Eos # (Auto) 0.0 Baso # (Auto) 0.2 WBC Differential . Differential Comment . PT INR APTT D-Dimer Quant (PE/DVT) 0.34 Sodium 137 Potassium 3.8 Chloride 105 Carbon Dioxide 24.0 Anion Gap 8 BUN 12 Creatinine 0.83 Estimated GFR 70 L Random Glucose 111 H Lactic Acid Calcium 8.3 L Total Bilirubin 1.4 H AST 46 H ALT 42 Alkaline Phosphatase 66 Total Creatine Kinase CK-MB (CK-2) Troponin I Less than 0.02 L B-Natriuretic Peptide Total Protein 7.5 Albumin 3.5 Lipase 92 Urine Color Urine Clarity Urine pH Ur Specific [place] Urine Protein Urine Glucose (UA) Urine Ketones Urine Occult Blood Urine Nitrate Urine Bilirubin Urine Urobilinogen Ur Leukocyte Esterase Urine RBC Urine WBC Ur Squamous Epith Cells Urine Bacteria Micro UA Comment Ur Microscopic Review Urine Culture Comments 12/09/17 12/09/17 12/09/17 13:06 13:06 13:06 CBC w Diff WBC RBC Hgb Hct MCV MCH MCHC RDW Plt Count MPV Neut % (Auto) Lymph % (Auto) [place] % (Auto) Eos % (Auto) Baso % (Auto) Neut # (Auto) Lymph # (Auto) [place] # (Auto) Eos # (Auto) Baso # (Auto) WBC Differential Differential Comment PT 10.9 INR 1.1 APTT 24.5 D-Dimer Quant (PE/DVT) Sodium Potassium Chloride Carbon Dioxide Anion Gap BUN Creatinine Estimated GFR Random Glucose Lactic Acid Calcium Total Bilirubin AST ALT Alkaline Phosphatase Total Creatine Kinase 136 CK-MB (CK-2) Less than 1.0 Troponin I B-Natriuretic Peptide 104 H Total Protein Albumin Lipase Urine Color Urine Clarity Urine pH Ur Specific [place] Urine Protein Urine Glucose (UA) Urine Ketones Urine Occult Blood Urine Nitrate Urine Bilirubin Urine Urobilinogen Ur Leukocyte Esterase Urine RBC Urine WBC Ur Squamous Epith Cells Urine Bacteria Micro UA Comment Ur Microscopic Review Urine Culture Comments 12/09/17 12/09/17 12/09/17 13:40 14:16 15:49 CBC w Diff WBC RBC Hgb Hct MCV MCH MCHC RDW Plt Count MPV Neut % (Auto) Lymph % (Auto) [place] % (Auto) Eos % (Auto) Baso % (Auto) Neut # (Auto) Lymph # (Auto) [place] # (Auto) Eos # (Auto) Baso # (Auto) WBC Differential Differential Comment PT INR APTT D-Dimer Quant (PE/DVT) Sodium Potassium Chloride Carbon Dioxide Anion Gap BUN Creatinine Estimated GFR Random Glucose Lactic Acid 1.4 Calcium Total Bilirubin AST ALT Alkaline Phosphatase Total Creatine Kinase 87 CK-MB (CK-2) Troponin I Less than 0.02 L B-Natriuretic Peptide Total Protein Albumin Lipase Urine Color Yellow Urine Clarity Clear Urine pH 6.0 Ur Specific [place] 1.015 Urine Protein Trace Urine Glucose (UA) Negative Urine Ketones 15 H Urine Occult Blood Trace Urine Nitrate Negative Urine Bilirubin Negative Urine Urobilinogen 0.2 Ur Leukocyte Esterase Small H Urine RBC 0-3 Urine WBC 0-5 Ur Squamous Epith Cells 0-5 Urine Bacteria Few H Micro UA Comment Culture not ind Ur Microscopic Review Microscopic reviewed Urine Culture Comments Culture not ind 12/09/17 12/09/17 12/10/17 19:20 21:20 05:35 CBC w Diff Auto diff final WBC 13.4 H RBC 3.99 L Hgb 12.1 D Hct 34.5 L MCV 86.5 MCH 30.3 MCHC 35.1 RDW 12.9 Plt Count 153 MPV 8.5 Neut % (Auto) 87.9 H Lymph % (Auto) 6.3 L [place] % (Auto) 3.3 Eos % (Auto) 2.3 Baso % (Auto) 0.2 Neut # (Auto) 11.9 H Lymph # (Auto) 0.8 L [place] # (Auto) 0.4 Eos # (Auto) 0.3 Baso # (Auto) 0.0 WBC Differential . Differential Comment . PT INR APTT D-Dimer Quant (PE/DVT) Sodium Potassium Chloride Carbon Dioxide Anion Gap BUN Creatinine Estimated GFR Random Glucose Lactic Acid Calcium Total Bilirubin AST ALT Alkaline Phosphatase Total Creatine Kinase 91 90 CK-MB (CK-2) Troponin I Less than 0.02 L Less than 0.02 L B-Natriuretic Peptide Total Protein Albumin Lipase Urine Color Urine Clarity Urine pH Ur Specific [place] Urine Protein Urine Glucose (UA) Urine Ketones Urine Occult Blood Urine Nitrate Urine Bilirubin Urine Urobilinogen Ur Leukocyte Esterase Urine RBC Urine WBC Ur Squamous Epith Cells Urine Bacteria Micro UA Comment Ur Microscopic Review Urine Culture Comments - Imaging Impressions Chest X-Ray 12/09/17 12:38 CONCLUSION: No acute intrathoracic disease. Chest CTA 12/09/17 15:22 CONCLUSION: 1. No evidence of acute pulmonary embolism. 2. Chronic lung changes with hyperinflation, central bronchial wall thickening and diffuse interstitial prominence. 3. Subsegmental airspace disease right lower lobe. Caprini VTE Risk Assessment Caprini VTE Risk Assessment: Moderate/High Risk (score >= 2) Caprini Risk Assessment Model: Point Value = 1 Point Value = 2 Point Value = 3 Point Value = 5 Age 41-60 Minor surgery BMI > 25 kg/m2 Swollen legs Varicose veins or History of unexplained or recurrent spontaneous Oral contraceptives or hormone replacement Sepsis (< 1 month) Serious lung disease, including pneumonia (< 1 month) Abnormal pulmonary function Acute myocardial infarction Congestive heart failure (< 1 month) History of inflammatory bowel disease Medical patient at bed rest Age 61-74 Arthroscopic surgery Major open surgery (> 45 min) Laparoscopic surgery (> 45 min) Malignancy Confined to bed (> 72 hours) Immobilizing plaster cast Central venous access Age >= 75 History of VTE Family history of VTE Factor V Leiden Prothrombin [id number] Lupus anticoagulant Anticardiolipin antibodies Elevated serum homocysteine Heparin-induced thrombocytopenia Other congenital or acquired thrombophilia Stroke (< 1 month) Elective arthroplasty Hip, pelvis, or leg fracture Acute spinal cord injury (< 1 month) Prophylaxis Regimen: Total Risk Factor Score Risk Level Prophylaxis Regimen 0-1 Low Early ambulation 2 Moderate Order ONE of the following: *Sequential Compression Device (SCD) *Heparin 5000 units SQ BID 3-4 Higher Order ONE of the following medications: *Heparin 5000 units SQ TID *Enoxaparin/Lovenox 40 mg SQ daily (WT < 150 kg, CrCl > 30 mL/min) *Enoxaparin/Lovenox 30 mg SQ daily (WT < 150 kg, CrCl > 10-29 mL/min) *Enoxaparin/Lovenox 30 mg SQ BID (WT < 150 kg, CrCl > 30 mL/min) AND/OR *Sequential Compression Device (SCD) 5 or more Highest Order ONE of the following medications: *Heparin 5000 units SQ TID (Preferred with Epidurals) *Enoxaparin/Lovenox 40 mg SQ daily (WT < 150 kg, CrCl > 30 mL/min) *Enoxaparin/Lovenox 30 mg SQ daily (WT < 150 kg, CrCl > 10-29 mL/min) *Enoxaparin/Lovenox 30 mg SQ BID (WT < 150 kg, CrCl > 30 mL/min) AND *Sequential Compression Device (SCD) Assessment and Plan - Plan Sepsis -Patient meets criteria with febrile illness, leukocytosis, sinus tachycardia, recent treatment for urinary tract infection, airspace disease in the right lower lung by CT -Patient clinically is much improved. She is no longer experiencing any fever, chills, leukocytosis has improved, patient not experiencing any dysuria, cough, congestion. -Patient started on Rocephin, Zithromax -Blood cultures are negative for 1 day -Legionella, Streptococcus pneumoniae antigens were negative -Urinalysis did not indicate any acute findings to indicate culture -Patient has been afebrile since admission to the hospital -After long discussion with the patient, she would like to receive at least one more dose of IV antibiotics and discharge home since she is feeling much better to continue oral antibiotics upon discharge. Had long and multiple discussions with the patient concerning her conditions, infection sources, presentation. Patient was notified to follow-up with her primary medical doctor for follow- up. Patient does understand. Chest pain, atypical -Patient with risk factors include age, female without exogenous hormones, tobacco use -Patient has been ruled out for acute coronary event with serial cardiac enzymes that are negative -Serial EKGs were performed which were reviewed by myself that indicated possible incomplete right bundle branch block without any changes -Patient recently underwent cardiac stress testing in Jul, 2017. Patient had exercise stress test performed by Dr. Lyn Ponce's office which was negative DVT prevention -Sequential compression devices Discharge Planning: Discharge home in stable condition Activity: Ad ton. Diet: Regular diet Medication per medication reconciliation Follow-up with primary medical doctor in 1 week
[2017-12-10 16:15] VITALS: BP 103/60; PULSE 73; TEMP 98.5; O2SAT 97
== END 2017-12-10 18:33 | disposition home or self-care (01) ==
LOC: PHED 12:19 → PHEDA 18:30 → PH3 21:04
PROVIDERS: ADMIT Hospitalist; ATTEND Hospitalist